=== PATIENT | female | born 1965 | race Caucasian/White ===

== ENCOUNTER → 2021-02-22 | Day surgery (SDC) | payer BC ==
[~2021-02-22] MED LIST: Acetaminophen 325 MG Tab PO SCH; Bupivacaine 0.25% 10 ML SDV ONE; EPINEPHrine 1 MG/ML SDV ONE; Ketorolac 30 MG/ML SDV ONE; Lactated Ringers 1,000 ML IV SCH; Lactated Ringers 1,000 ML ONE; Lidocaine 1%/Sod Bicarbonate in NS 8.4% 1 ML Syringe IDERM PRN; Midazolam 1 MG/ML 2 ML SDV ONE; Morphine 8 MG, EPINEPHrine 0.3 MG, Cefuroxime 750 MG, Ketorolac 30 MG, Sodium Chloride ... PRN; Ondansetron 4 MG/2 ML SDV IVPUSH ONE; Ondansetron 4 MG/2 ML SDV ONE; Pregabalin 25 MG Cap PO SCH; Propofol 200 MG/20 ML SDV ONE; Ropivacaine 0.5% 5 MG/ML 30 ML SDV ONE; Sodium Chloride 0.9% 10 ML Syringe FLUSH PRN; Triamcinolone Acetonide 40 MG/ML 1 ML SDV ONE; Vancomycin 1 GM SDV ONE; ceFAZolin 1 GM Vial ONE; fentaNYL 100 MCG/2 ML SDV IVPUSH PRN; fentaNYL 100 MCG/2 ML SDV ONE; oxyCODONE 5 MG Tab PO ONE; oxyCODONE ER 10 MG TAB.ER PO SCH
--- NOTE | 2021-02-22 06:59 | PCM.PREANE ---
Preanesthetic Assessment - Procedure Proposed Procedure: Right total knee arthroplasty with left knee steroid injection - Anesthesia/Transfusion/Family Hx Anesthesia History: Prior Anesthesia Without Reaction Family History of Anesthesia Reaction: No Transfusion History: No Prior Transfusion(s) Intubation History: Unknown - Review of Systems General: No Symptoms Pulmonary: No Symptoms Cardiovascular: No Symptoms Gastrointestinal: No Symptoms Neurological: No Symptoms Other: Reports: None - Physical Assessment NPO Status Date: 02/21/21 NPO Status Time: 21:00 Vital Signs: BP 101/81 HR 75 RR 16 97% 97.8 Height: 1.73 m Weight: 89 kg ASA Class: 3 Mental Status: Alert & Oriented x3 Airway Class: Mallampati = 2 Thyro-Mental Finger Breadths: 3 Mouth Opening Finger Breadths: 3 ROM/Head Extension: Full Lungs: Clear to Auscultation, Normal Respiratory Effort Cardiovascular: Regular Rate, Regular Rhythm, No Murmurs - Lab Values: Labs reviewed and okay to proceed - Imaging/EKG Impressions: 07/17/20 echo EF 55% EKG NSR HR 70 02/13/21 - Allergies Allergies/Adverse Reactions: Allergies Allergy/AdvReac Type Severity Reaction Status Date / Time albuterol Allergy Cannot Verified 02/21/21 12:58 Remember amitriptyline Allergy Cannot Verified 02/21/21 12:58 Remember - Blood Blood Available: No Product(s) Available: None - Anesthesia Plan Beta Milton: Carvedilol Med Last Dose Date: 02/22/21 Med Last Dose Time: 05:00 - Acknowledgements Anesthesia Type Planned: General Anesthesia, Spinal Pt an Appropriate Candidate for the Planned Anesthesia: Yes Alternatives and Risks of Anesthesia Discussed w Pt/Guardian: Yes Pt/Guardian Understands and Agrees with Anesthesia Plan: Yes PreAnesthesia Questionnaire HEENT History: Reports: None Cardiovascular History: Reports: CAD, Hypertension, VT, Stents (x2 2019) Other Cardiovascular History: Greater than for 4 mets; no chest pain or SOB Respiratory History: Reports: None Gastrointestinal History: Reports: GERD (Occasional; well controlled) Genitourinary History: Reports: None [employer] History: Reports: None Musculoskeletal History: Reports: Gout, Other (See Below) Other Musculoskeletal History: myofascial pain syndrome Neurological History: Reports: None Psychiatric History: Reports: None Endocrine/Metabolic History: Reports: None Hematologic History: Reports: None Immunologic History: Reports: None Oncologic (Cancer) History: Reports: None Dermatologic History: Reports: Cellulitis - Infectious Disease History Infectious Disease History: Reports: None - Past Surgical History Head Surgeries/Procedures: Reports: None HEENT Surgical History: Reports: Naso-Sinus Surgery Cardiovascular Surgical History: Reports: None Other Cardiovascular Surgeries/Procedures: Vein stripping Respiratory Surgical History: Reports: None GI Surgical History: Reports: Cholecystectomy Female Surgical History: Reports: Hysterectomy Male Surgical History: Reports: None Endocrine Surgical History: Reports: None Neurological Surgical History: Reports: None Musculoskeletal Surgical History: Reports: None Oncologic Surgical History: Reports: None Dermatological Surgical History: Reports: None - SUBSTANCE USE Tobacco Use Status *Q: Former Tobacco User Tobacco Use Within Last Twelve Months: No Second Hand Smoke Exposure: Yes Days Per Week of Alcohol Use: 0 Number of Drinks Per Day: 0 Total Drinks Per Week: 0 Recreational Drug Use History: No - HOME MEDS Home Medications: Home Meds Aspirin 81 mg PO DAILY 02/21/21 [History] Aspirin [Aspirin EC] 325 mg PO BID #84 tab 02/21/21 [Rx] Calcium Carbonate [Calcium] 500 mg PO BID 02/21/21 [History] Cholecalciferol (Vitamin D3) [Vitamin D3] 2,000 unit PO DAILY 02/21/21 [History] Citalopram [Citalopram HBr] 20 mg PO DAILY 02/21/21 [History] DULoxetine [Cymbalta] 60 mg PO DAILY 02/21/21 [History] Diclofenac Sodium [Voltaren 1% Gel] 1 dose TOP TID PRN 02/21/21 [History] Famotidine [Pepcid] 40 mg PO DAILY 02/21/21 [History] Furosemide [Lasix] 20 mg PO BID 02/21/21 [History] Hydrocodone/Acetaminophen [HYDROcodone-Acetaminophen 10-325 MG] 1 tab PO Q4H PRN 02/21/21 [History] Hydrocortisone [Hydrocortisone 1% Crm] 1 dose TOP BID PRN 02/21/21 [History] Nitroglycerin [Nitrostat] 0.4 mg PO ASDIRECTED PRN 02/21/21 [History] Potassium Chloride [Klor-Con 10] 10 meq PO BID 02/21/21 [History] Rosuvastatin Calcium [Crestor] 40 mg PO DAILY 02/21/21 [History] Spironolactone [Aldactone] 25 mg PO DAILY 02/21/21 [History] carvediloL [Coreg] 12.5 mg PO DAILY 02/21/21 [History] oxyCODONE 5 - 10 mg PO Q4H PRN #40 tab 02/21/21 [Rx] - CURRENT (IN HOUSE) MEDS Current Meds: Current Medications Acetaminophen (Acetaminophen 325 Mg Tab) 975 mg PO ONETIME CYRUS Stop: 02/22/21 16:00 Morphine Sulfate 8 mg/Epinephrine HCl 0.3 mg/Cefuroxime Sodium 750 mg/Ketorolac Tromethamine 30 mg/Sodium Chloride 7.9 ml 0 mg .XX ASDIRECTED PRN PRN Reason: Pain Stop: 02/22/21 18:00 Lactated Ringer's (Ringers, Lactated) 1,000 mls @ 125 mls/hr IV ASDIRECTED CYRUS Stop: 02/22/21 23:00 Lidocaine/Sodium Bicarbonate (Lidocaine 1%/Sod Bicarbonate In Ns 8.4% 1 Ml Syringe) 0.25 ml IDERM ONETIME PRN PRN Reason: Prior to IV Start Stop: 02/22/21 18:00 Oxycodone HCl (Oxycodone Er 10 Mg Tab.Er) 10 mg PO ONETIME CYRUS Stop: 02/22/21 16:00 Pregabalin (Pregabalin 25 Mg Cap) 50 mg PO ONETIME CYRUS Stop: 02/22/21 16:00 Sodium Chloride (Sodium Chloride 0.9% 10 Ml Syringe) 10 ml FLUSH ASDIRECTED PRN PRN Reason: Keep Vein Open Stop: 02/22/21 18:00 Discontinued Medications Bupivacaine HCl (Bupivacaine 0.25% 10 Ml Sdv) Confirm Administered Dose 10 ml .ROUTE .STK-MED ONE Stop: 02/22/21 06:26 Triamcinolone Acetonide (Triamcinolone Acetonide 40 Mg/Ml 1 Ml Sdv) Confirm Administered Dose 40 mg .ROUTE .STK-MED ONE Stop: 02/22/21 06:26
--- NOTE | 2021-02-22 10:52 | PCM.POSTAN ---
POST ANESTHESIA ASSESSMENT - MENTAL STATUS Mental Status: Alert, Oriented - VITAL SIGNS Vital Signs: Last Vital Signs Temp 36.6 C 02/22/21 10:44 Pulse 78 02/22/21 10:44 Resp 18 02/22/21 10:44 BP 120/84 02/22/21 10:44 Pulse Ox 96 02/22/21 10:44 - RESPIRATORY Respiratory Status: Respiratory Rate WNL, Airway Patent, O2 Saturation Stable - CARDIOVASCULAR CV Status: Pulse Rate WNL, Blood Pressure Stable - GASTROINTESTINAL GI Status: No Symptoms - PAIN Pain Score: 0 - POST OP HYDRATION Hydration Status: Adequate & Stable - OBSERVATIONS Free Text/Narrative:: no anesthesia complications noted
--- NOTE | 2021-02-22 11:22 | PCM.SN.2 ---
- Free Text/Narrative Note: Right selective femoral nerve block at the adductor canal for post-procedure pain control under US guidance requested by Dr. Morgan. Time Out: 1100 Start: 1103 End: 1105 Chart reviewed. Consent signed. Questions answered. Appropriate monitors applied. Time out performed. Right mid-shaft femur identified with ultrasound, scanning medially of femur, the femoral artery in the adductor canal visualized, and the femoral nerve located laterally to the artery. The skin was prepped lateral to the ultrasound probe with chlorahexadine times two. The 21ga 4 insulated block needle was inserted under direct ultrasound guidance into the adductor canal. 25mL of 0.5% ropivacaine with 1:200,000 epinephrine was injected circumferentially around the nerve with intermittent negative aspiration noted. Patient tolerated the procedure well. Sterile technique noted along with sterile gloves, mask, and sterile probe cover. See picture on progress note and vital signs on nurses notes. Block completed in PACU. Jake Gandhi CRNA Time Documentation
--- NOTE | 2021-02-22 11:44 | CR ---
Right knee: AP and crosstable lateral views of the right knee were obtained. Comparison: Prior CT right knee study of 02/14/21. Knee prosthesis is seen. Patellar prosthesis is noted. Components are aligned. Soft tissue air is seen. Underlying bony structures show nothing else acute. Impression: 1. Satisfactory postoperative radiographic appearance of recently placed right knee prostheses. Diagnostic code #2
--- NOTE | 2021-03-07 12:55 | PCM.OPNOTE ---
- General Post-Op/Procedure Note Date of Surgery/Procedure: 02/22/21 Operative Procedure(s): right total knee arthroplasty with left knee injection Pre Op Diagnosis: bilateral knee osteoarthrosis Post-Op Diagnosis: Same Anesthesia Technique: Local, MAC, Spinal Primary Surgeon: Daquan Morgan Anesthesia Provider: Jake Gandhi Corn Cutter Operator: Mita Salinas Corn Cutter Operator: Kathie Millard EBL in mLs: 350 Complications: None Condition: Good Free Text/Narrative:: 06/28 10mm 29x9
--- NOTE | 2021-03-07 13:17 | OR ---
DATE OF OPERATION: 02/22/2021 SURGEON: Daquan Morgan MD OPERATION PERFORMED: Right total knee arthroplasty with left knee corticosteroid injection. PREOPERATIVE DIAGNOSIS: Bilateral knee osteoarthrosis. POSTOPERATIVE DIAGNOSIS: Bilateral knee osteoarthrosis. ANESTHESIA: Local MAC with spinal. ANESTHESIA PROVIDER: Jake Gandhi CRNA [employer] REPAIRER: Mita Salinas PA-C and Kathie Millard LPN. ESTIMATED BLOOD LOSS: 350 mL. COMPLICATIONS: None. CONDITION: Stable. IMPLANT: 1. Thorpe size 3 press-fit CR femur. 2. Cely size 3 press-fit tibial baseplate. 3. Thorpe size 3, 10 mm CS polyethylene insert. 4. Cely size 29 x 9 mm press-fit asymmetric patella. DESCRIPTION OF PROCEDURE: The patient was identified in the preop holding area. Proper site was marked and identified by the surgeon. The patient was taken back to the operating theater, where after adequate anesthesia, the patient's right lower extremity had a nonsterile tourniquet applied and then it was sterilely prepped and draped in the usual sterile fashion. OR time-out was performed. The patient received 2 g IV Ancef. Leg sparrow was then applied to the right lower extremity. At this time, the right lower extremity was exsanguinated. Tourniquet was insufflated to 250 mmHg. Standard anterior incision was made. Medial parapatellar arthrotomy was created. Deep fibers of the MCL were raised and anterior fat pad was resected. Attention was turned to the patella. Patella measured 21, it was resected to a 13 for a 29 x 9 mm patella . Drill holes were then drilled. Attention was then turned to the femur. Two 4.0 Schanz pins were placed intra-incisionally on the femur for the Cely Ash robotic array and then 2 more were placed on the tibia 3 fingerbreadths below the tibial tubercle. The Thorpe Ash robotic arrays were placed on both the femur and the tibia at this time as well as checkpoints on the femur and tibia. Hip center rotation was then obtained. The medial and lateral malleoli were marked as well as the checkpoints were marked for the Thorpe Ash robotic plan. The patients knee was brought to full extension, varus and valgus stresses were applied, and then into 90 degrees of flexion. Cely Ash robotic plan for this patient was then undertaken to match the flexion and extension gaps. A straight saw blade was then brought in. Tibial cut was completed as well as an anterior femoral cut, anterior chamfer cut, and posterior femoral cut. Saw blade was then switched out and the distal femoral cut as well as the posterior chamfer cut was completed. All bony fragments were removed. At this time, medial and lateral menisci were resected as well as any posterior osteophytes. Attention was turned to the tibia. The size 3 press-fit tibial baseplate was placed on the tibia and a size 3 press-fit CR femur was placed on the femur. A 3, 10 mm CS polyethylene was placed. The patient's knee was brought to full extension and flexion. Varus and valgus stresses were applied, was found to be stable with no instability. No signs of liftoff or loosening on the tibial baseplate. At this time, femoral drill holes were drilled, and the tibia was stamped and drilled in proper rotation. All trial implants were then removed. The size 3 press-fit tibial baseplate was impacted into place, size 3 press-fit CR femoral component was impacted into place, and then a 3, 10 mm CS polyethylene insert was impacted into place. A size 29 x 9 mm press-fit patella was then press-fit into place. The tourniquet was deflated. Bleeders were cauterized. 1 L pulse lavage irrigation with Ancef was irrigated through the knee along with 400 mL Irrisept irrigation. Periarticular injection was completed. Topical tranexamic acid and vancomycin powder were applied. All checkpoints and pins were removed. At this point, a #2 barbed suture was used for closure of the medial parapatellar arthrotomy in flexion. 2-0 Vicryl and Stratafix were used for subcutaneous closure. Prineo was used for cutaneous closure. 3-0 nylons were used for closure of the pin holes on the tibia. The patient had a sterile soft dressing applied. The patient had an KEYSHAWN wrap applied and was sent to PACU in stable condition. The patient tolerated the procedure well. After this was completed under sterile technique, 2 mL of 40 mg Kenalog and 4 mL of 0.25% Marcaine were injected in the left knee. The patient tolerated all procedures well. MMODAL /[id number]
== END | disposition home or self-care (01) ==
LOC: JD.SDS 07:15
PROVIDERS: ATTEND Orthopaedic Surgery
DX: M17.0 Bilateral primary osteoarthritis of knee (principal); I25.10 Atherosclerotic heart disease of native coronary artery without angina pectoris; I11.0 Hypertensive heart disease with heart failure; I50.22 Chronic systolic (congestive) heart failure; K21.9 Gastro-esophageal reflux disease without esophagitis; Z87.891 Personal history of nicotine dependence; I25.2 Old myocardial infarction; Z88.8 Allergy status to other drugs, medicaments and biological substances; Z79.899 Other long term (current) drug therapy; Z79.82 Long term (current) use of aspirin; Z98.890 Other specified postprocedural states
CPT/HCPCS: 20610; 27447; 73560; 97110; 97116; 97161; 97165; 97530; A9270; C1713; C1776; J0171; J0690; J0697; J1885; J2250; J2270; J2405; J2704; J2795; J3010; J3301; J3370; J3490; J7120; 01402; 64447; 76942

== ENCOUNTER 2024-04-05 09:07 | Day surgery (SDC) | payer BC ==
[~2024-04-05 09:07] MED LIST changes: -Acetaminophen 325 MG Tab PO SCH; -Bupivacaine 0.25% 10 ML SDV ONE; +Dexamethasone 4 MG/ML 5 ML MDV ONE; -EPINEPHrine 1 MG/ML SDV ONE; -Lactated Ringers 1,000 ML IV SCH; -Lactated Ringers 1,000 ML ONE; -Lidocaine 1%/Sod Bicarbonate in NS 8.4% 1 ML Syringe IDERM PRN; -Morphine 8 MG, EPINEPHrine 0.3 MG, Cefuroxime 750 MG, Ketorolac 30 MG, Sodium Chloride ... PRN; -Ondansetron 4 MG/2 ML SDV IVPUSH ONE; -Pregabalin 25 MG Cap PO SCH; +Sodium Chloride 0.9% 10 ML Syringe FLUSH SCH; -Triamcinolone Acetonide 40 MG/ML 1 ML SDV ONE; -Vancomycin 1 GM SDV ONE; -ceFAZolin 1 GM Vial ONE; +dexmedeTOMIDine HCl 200 MCG/2 ML SDV ONE; -fentaNYL 100 MCG/2 ML SDV IVPUSH PRN; -oxyCODONE 5 MG Tab PO ONE; -oxyCODONE ER 10 MG TAB.ER PO SCH
[2024-04-05] MEDS: Lactated Ringers 1,000 ML IV SCH (09:50)
[2024-04-05] MEDS ORDERED: HYDROmorphone 0.5 MG/0.5 ML Syringe IVPUSH PRN (09:56)
[2024-04-05] MEDS ORDERED: Ondansetron 4 MG/2 ML SDV IVPUSH PRN (09:56)
[2024-04-05] MEDS ORDERED: fentaNYL 100 MCG/2 ML SDV IVPUSH PRN (09:56)
[2024-04-05] MEDS: Acetaminophen 325 MG Tab PO ONE (09:58)
[2024-04-05] MEDS: Pregabalin 25 MG Cap PO ONE (09:58)
[2024-04-05] MEDS: oxyCODONE ER 10 MG TAB.ER PO ONE (09:58)
[2024-04-05] MEDS ORDERED: ceFAZolin 2 GM Vial ONE (10:05)
[2024-04-05] MEDS ORDERED: Phenylephrine 1% 10 MG/ML SDV ONE (11:35)
[2024-04-05] MEDS ORDERED: Ketamine 200 MG/20 ML MDV ONE (11:53)
[2024-04-05] MEDS ORDERED: Lactated Ringers 1,000 ML ONE (11:56)
[2024-04-05] MEDS ORDERED: Propofol 200 MG/20 ML SDV ONE ×2 (12:04)
[2024-04-05] MEDS: Morphine 8 MG, EPINEPHrine 0.3 MG, Cefuroxime 750 MG, Ketorolac 30 MG, Sodium Chloride ... PRN (12:26)
[2024-04-05] MEDS: VANCOmycin 1 GM SDV ONE (12:32)
[2024-04-05] MEDS: Tranexamic Acid 1,000 MG/10 ML Vial ONE (12:32)
[2024-04-05] MEDS: Acetaminophen/oxyCODONE 325-5 MG Tab PO PRN (14:00)
== END 2024-04-05 16:12 | disposition home or self-care (01) ==
LOC: JD.SDS 09:07
PROVIDERS: ATTEND Orthopaedic Surgery
DX: M17.12 Unilateral primary osteoarthritis, left knee (principal); I25.10 Atherosclerotic heart disease of native coronary artery without angina pectoris; K21.9 Gastro-esophageal reflux disease without esophagitis; I11.0 Hypertensive heart disease with heart failure; I50.22 Chronic systolic (congestive) heart failure; M79.18 Myalgia, other site; Z79.899 Other long term (current) drug therapy
CPT/HCPCS: 0055T; 27447; 64447; 73560; 97116; 97161; A9270; C1713; C1776; J0171; J0690; J0697; J1100; J1885; J2250; J2272; J2371; J2405; J2704; J2795; J3010; J3490; J7120